=== PATIENT | female | born 1970 | race Caucasian/White ===

== ENCOUNTER 2017-11-09 13:13 | Emergency (ER) | payer MEDICARE ==
[~2017-11-09] VITALS: Ht 165.1 cm; Wt 87.0 kg
[~2017-11-09 13:13] MED LIST: DIAZ5TAB PO; GABA300C10 PO; SERT50TA PO; ZIPR60CA2 PO
[2017-11-09] MEDS ORDERED: SODIUM CHLORIDE 0.9% 1,000ML IVBOLUS ONE (14:00)
[2017-11-09] MEDS ORDERED: FAMOTIDINE 20 MG/2 ML IVP ONE (14:00)
[2017-11-09 14:13] LABS: BASOPHILS # (AUTO) 0.02 x10^3/uL (0-0.1); BASOPHILS % (AUTO) 0 % (0-1); EOSINOPHILS # (AUTO) 0.14 x10^3/uL (0-0.4); EOSINOPHILS % (AUTO) 2 % (1-7); LYMPHOCYTES # (AUTO) 1.49 x10^3/uL (1-3.4); LYMPHOCYTES % (AUTO) 25 % (22-44); MD NO; MEAN CORPUSCULAR HEMOGLOBIN 30.2 pg (27.0-34.8); MEAN CORPUSCULAR HGB CONC 33.1 g/dL (32.4-35.8); MEAN CORPUSCULAR VOLUME 91.4 fL (80-100); MEAN PLATELET VOLUME 7.1 fL (7.4-10.4); MONOCYTES # (AUTO) 0.42 x10^3/uL (0.2-0.8); MONOCYTES % (AUTO) 7 % (2-9); NEUTROPHILS # (AUTO) 3.89 x10^3/uL (1.8-6.8); NEUTROPHILS % (AUTO) 65 % (42-75); PLATELET COUNT 317 x10^3/uL (130-400); RED BLOOD COUNT 4.89 x10^6/uL (3.82-5.3); RED CELL DISTRIBUTION WIDTH 12.9 % (9.6-15.2)
[2017-11-09 14:21] LABS: ALBUMIN 3.7 g/dL (3.4-5.0); ANION GAP 9 mmol/L (5-15); CHLORIDE 105 mmol/L (98-107)
[2017-11-09] MEDS ORDERED: FAMOTIDINE 20 MG/2 ML ONE (14:22)
[2017-11-09] MEDS ORDERED: ONDANSETRON 2MG/ML, 2ML ONE (14:22)
[2017-11-09] MEDS: ONDANSETRON 2MG/ML, 2ML IVPush ONE ×2 (14:25→14:28)
[2017-11-09 14:26] LABS: ALANINE AMINOTRANSFERASE 164 U/L (12-78); ALKALINE PHOSPHATASE 226 U/L (45-117); BILIRUBIN,TOTAL 0.3 mg/dL (0.2-1.0); CREATININE 0.89 mg/dL (0.55-1.02); TOTAL PROTEIN 7.8 g/dL (6.4-8.2)
[2017-11-09 15:43] LABS: MICROSCOPIC INDICATED
[2017-11-09 15:49] LABS: CULTURE INDICATED? YES
[2017-11-09 16:16] VITALS: BP 130/76
== END 2017-11-09 16:18 | disposition home or self-care (01) ==
LOC: ED 14:43
DX: J98.01 Acute bronchospasm (principal); R19.7 Diarrhea, unspecified; F17.210 Nicotine dependence, cigarettes, uncomplicated; F43.10 Post-traumatic stress disorder, unspecified; Z90.49 Acquired absence of other specified parts of digestive tract
CPT/HCPCS: 36415; 71046; 80053; 81001; 85025; 86704; 86706; 86708; 86803; 87086; 87340; 96361; 96374; 99285; J7030; J2405; S0028

== ENCOUNTER 2020-05-27 07:48 | Day surgery (SDC) | payer MEDICARE, OTHER ==
[~2020-05-27] VITALS: Ht 165.1 cm; Wt 79.2 kg
[2020-05-27 08:36] VITALS: BP 107/75
[2020-05-27] MEDS ORDERED: CETI10TA18 PO (08:48)
[2020-05-27] MEDS ORDERED: BENZTROPINE PO (08:48)
[2020-05-27] MEDS ORDERED: LEVOTHYROXINE PO (08:48)
[2020-05-27] MEDS ORDERED: GLIP5TAB10 PO (08:48)
[2020-05-27] MEDS ORDERED: LOPERAMIDE PO (08:48)
[2020-05-27] MEDS ORDERED: HALOPERIDOL PO (08:48)
[2020-05-27] MEDS ORDERED: ZOFRAN PO (08:48)
[2020-05-27] MEDS ORDERED: LACTATED RINGERS 1,000 ML IV SCH (08:49)
[2020-05-27] MEDS ORDERED: CHLORHEXIDINE 15 ML UDC MM ONE (09:00)
[2020-05-27 09:28] LABS: ALANINE AMINOTRANSFERASE 17 U/L (12-78); ALBUMIN 2.8 g/dL (3.4-5.0); ANION GAP 7 mmol/L (5-15); CALCIUM 8.4 mg/dL (8.5-10.1); CHLORIDE 107 mmol/L (98-107); CREATININE 0.85 mg/dL (0.55-1.02)
[2020-05-27 09:30] LABS: ALKALINE PHOSPHATASE 139 U/L (45-117); BILIRUBIN,TOTAL 0.4 mg/dL (0.2-1.0); TOTAL PROTEIN 7.1 g/dL (6.4-8.2)
[2020-05-27] MEDS ORDERED: PROPOFOL 10 MG/ML, 20ML ONE (10:46)
[2020-05-27] MEDS ORDERED: PROPOFOL 10 MG/ML, 50ML ONE (10:46)
[2020-05-27] MEDS ORDERED: DIAZEPAM 5 MG/ML, 2ML IVPush PRN (11:00)
[2020-05-27] MEDS ORDERED: ONDANSETRON 2MG/ML, 2ML IVPush PRN (11:00)
[2020-05-27] MEDS ORDERED: DIPHENHYDRAMINE 50 MG/ML, 1ML IVPush PRN (11:00)
[2020-05-27] MEDS ORDERED: ACETAMINOPHEN 325 MG TABLET PO PRN (11:00)
[2020-05-27] MEDS ORDERED: EPHEDRINE 50 MG/ML, 1ML IM PRN (11:00)
[2020-05-27] MEDS ORDERED: PROMETHAZINE 25 MG/ML, 1ML IVPush PRN (11:00)
== END 2020-05-27 12:34 | disposition home or self-care (01) ==
LOC: OUT 07:48
PROVIDERS: ATTEND Internal Medicine Gastroenterology
DX: K22.10 Ulcer of esophagus without bleeding (principal); Z11.59 Encounter for screening for other viral diseases; K29.50 Unspecified chronic gastritis without bleeding; K44.9 Diaphragmatic hernia without obstruction or gangrene; K51.80 Other ulcerative colitis without complications; K21.9 Gastro-esophageal reflux disease without esophagitis; F41.9 Anxiety disorder, unspecified; F32.9 Major depressive disorder, single episode, unspecified; J45.909 Unspecified asthma, uncomplicated; E03.9 Hypothyroidism, unspecified; G43.909 Migraine, unspecified, not intractable, without status migrainosus; F12.90 Cannabis use, unspecified, uncomplicated; F17.210 Nicotine dependence, cigarettes, uncomplicated; Z88.8 Allergy status to other drugs, medicaments and biological substances; Z90.49 Acquired absence of other specified parts of digestive tract; Z98.890 Other specified postprocedural states; Z79.899 Other long term (current) drug therapy; Z79.84 Long term (current) use of oral hypoglycemic drugs
CPT/HCPCS: 36415; 43239; 45380; 80053; 87635; 88305; 93005; J2704; J7120

== ENCOUNTER 2020-07-23 12:34 | Emergency (ER) | payer MEDICARE, OTHER ==
[~2020-07-23] VITALS: Ht 165.1 cm; Wt 74.0 kg
[~2020-07-23 12:34] MED LIST changes: +BENZTROPINE PO; +CETI10TA18 PO; +GLIP5TAB10 PO; +HALOPERIDOL PO; +LEVOTHYROXINE PO; +LOPERAMIDE PO; +ZOFRAN PO
--- NOTE | 2020-07-23 12:50 | NUR ---
BIB [facility] FROM HOME. PT C/O DIZZYNESS WHEN STANDING. PT STATES WILL BLACK OUT FOR A MINUTE WHEN SITTING. DENIES FALLS. PT STATES HAS NOT EATEN IN 2 DAYS, D/T LIMITED ACCESS TO OBTAIN FOOD. 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 250ML NS. WHEN ASKED ABOUT N/V/D, PT STATES "ANYTIME I CAN". PT SPEAKING IN FULL SENTENCES, NADN. PT CONNECTED TO MONITORING. CALL LIGHT IN REACH.
[2020-07-23] MEDS ORDERED: SODIUM CHLORIDE FLUSH 10ML SYR IVF ONE (13:00)
[2020-07-23] MEDS ORDERED: SODIUM CHLORIDE 0.9% 1,000ML IVBOLUS ONE (13:00)
--- NOTE | 2020-07-23 13:08 | NUR ---
PT STATES, AT HOME, SHE AMBULATES WITH CANE TO ELEVATOR MULTIPLE TIMES A DAY TO GO OUTSIDE TO SMOKE.
--- NOTE | 2020-07-23 13:21 | NUR ---
EKG COMPLETED UPON PT ARRIVAL BY DRAWING KILN SUPERVISOR.
[2020-07-23 13:24] LABS: MEAN CORPUSCULAR HEMOGLOBIN 24.8 pg (27.0-34.8); MEAN CORPUSCULAR HGB CONC 31.6 g/dL (32.4-35.8); MEAN PLATELET VOLUME 5.8 fL (7.4-10.4); PLATELET COUNT 717 x10^3/uL (130-400); RED BLOOD COUNT 4.63 x10^6/uL (3.82-5.3); RED CELL DISTRIBUTION WIDTH 17.1 % (9.6-15.2)
--- NOTE | 2020-07-23 13:30 | NUR ---
PT AMBULATED TO RESTROOM WITH CANE AND STEADY GAIT TO PROVIDE URINE SAMPLE. UA COLLECTED AND TAKEN TO LAB. PT PROVIDE SMALL AMOUNT OF URINE, LAB STATES "THEY WILL TRY" WITH THE SMALL AMOUNT. IVF RUNNING PER DEC.
[2020-07-23 13:32] LABS: ALANINE AMINOTRANSFERASE 13 U/L (12-78); ALBUMIN 2.3 g/dL (3.4-5.0); ANION GAP 3 mmol/L (5-15); CALCIUM 8.6 mg/dL (8.5-10.1); CHLORIDE 109 mmol/L (98-107); CREATININE 1.04 mg/dL (0.55-1.02)
[2020-07-23 13:33] LABS: MICROSCOPIC INDICATED
[2020-07-23 13:37] LABS: ALKALINE PHOSPHATASE 172 U/L (45-117); BILIRUBIN,TOTAL 0.2 mg/dL (0.2-1.0); TOTAL PROTEIN 7.3 g/dL (6.4-8.2); TROPONIN I < 0.015 ng/mL (0.000-0.045)
[2020-07-23 13:51] LABS: MD YES
[2020-07-23 13:52] LABS: BAND#(MANUAL) 0.07 x10^3/uL; BANDS%(MANUAL) 1 % (0-7); LYMPH#(MANUAL) 2.77 x10^3/uL (1-3.4); LYMPHS% (MANUAL) 38 % (22-44); MONOS#(MANUAL) 0.29 x10^3/uL (0.3-2.7); MONOS% (MANUAL) 4 % (2-9)
[2020-07-23 13:53] LABS: ANISOCYTOSIS 1+; EOS#(MANUAL) 0.37 x10^3/uL (0.0-0.4); EOS% (MANUAL) 5 % (1-7); HYPOCHROMIA 1+; MICROCYTOSIS 1+; SEGS% (MANUAL) 52 % (42-75)
[2020-07-23 13:54] LABS: <PLATELET ESTIMATE> INCREASED
[2020-07-23 13:55] LABS: SMALL PLATELETS 1+
--- NOTE | 2020-07-23 14:01 | NUR ---
ALL RESULTS ARE BACK AT THIS TIME. CHART UP FOR RECHECK.
[2020-07-23 15:35] VITALS: BP 107/62
--- NOTE | 2020-07-23 15:35 | NUR ---
PT AMBULATED TO RESTROOM WITH STEADY GAIT.
--- NOTE | 2020-07-23 15:38 | NUR ---
PT PROVIDED SNACK AND WATER FOR PO CHALLENGE.
--- NOTE | 2020-07-23 15:53 | NUR ---
PT PASSED PO CHALLENGE. NOTIFIED.
== END 2020-07-23 16:24 | disposition home or self-care (01) ==
LOC: ED 13:30
DX: R42 Dizziness and giddiness (principal); R55 Syncope and collapse; F17.200 Nicotine dependence, unspecified, uncomplicated; Z72.9 Problem related to lifestyle, unspecified; R00.0 Tachycardia, unspecified; E11.9 Type 2 diabetes mellitus without complications; E03.9 Hypothyroidism, unspecified; Z90.49 Acquired absence of other specified parts of digestive tract
CPT/HCPCS: 36415; 71045; 80053; 81001; 83605; 83735; 84443; 84484; 85025; 87086; 87147; 93005; 99285; J7030